=== PATIENT | male | born 1990 | race Caucasian/White ===

== ENCOUNTER 2022-03-14 08:57 | Emergency (ER) | payer BC ==
[2022-03-14 09:18] VITALS: BP 155/65; PULSE 76; RESP 18; TEMP 98.1
--- NOTE | 2022-03-14 09:56 | XR ---
EXAMINATION TYPE: XR ankle complete LT DATE OF EXAM: 03/14/2022 COMPARISON: NONE INDICATION: Pain/injury TECHNIQUE: 3 views of the left ankle FINDINGS: No definite acute fracture line identified. Preserved ankle mortise with a smooth talar dome. No siza ble ankle joint effusion. Tiny posterior calcaneal enthesophyte at the insertion of Achilles tendon. IMPRESSION: No definite acute fracture or dislocation identified.
[2022-03-14] MEDS ORDERED: IBUPROFEN 800 MG TAB PO STA (11:27)
--- NOTE | 2022-03-14 11:31 | ED ---
Lower Extremity Injury HPI - General Chief Complaint: Extremity Injury, Lower Stated Complaint: ankle injury Time Seen by Provider: 03/14/22 11:20 Source: patient, RN notes reviewed, old records reviewed Mode of arrival: wheelchair Limitations: no limitations - History of Present Illness Initial Comments: Well-appearing 32-year-old male presents to the emergency room with complaints of left ankle pain and swelling. Patient states that he rolled his ankle last night stepping off the curb. He was able to ambulate at the time but this morning awoke with increased pain and swelling. He states it feels "fuzzy" and at the time of injury he felt a tearing sensation. He has been taking Motrin and using ice with no relief. MD Complaint: ankle injury, foot injury (left) -: days(s) (1) Type of Injury: other (rolled) Place: street/outdoors Severity scale (1-10): 8 Associated Symptoms: other ("tearing") Treatments Prior to Arrival: cold therapy, NSAIDS - Related Data Previous Rx's Medication Instructions Recorded Ibuprofen [Motrin] 800 mg PO Q6HR #30 tab 03/14/22 Allergies Allergy/AdvReac Type Severity Reaction Status Date / Time No Known Allergies Allergy Verified 03/14/22 09:18 Review of Systems ROS Statement: Those systems with pertinent positive or pertinent negative responses have been documented in the HPI. ROS Other: All systems not noted in ROS Statement are negative. Past Medical History History of Any Multi-Drug Resistant Organisms: None Reported Additional Past Surgical History / Comment(s): vasectomy Past Psychological History: No Psychological Hx Reported Smoking Status: Vaper Past Alcohol Use History: Occasional Past Drug Use History: None Reported General Exam Limitations: no limitations General appearance: alert, in no apparent distress Head exam: Present: atraumatic Respiratory exam: Absent: respiratory distress, accessory muscle use Cardiovascular Exam: Present: regular rate Left Ankle exam: Present: tenderness, swelling. Absent: deformity Foot/Toe exam: Present: tenderness, swelling. Absent: deformity, crepitus, dislocation, calcaneal tenderness, tenderness at base of 5th metatarsal Neurovascular tendon exam: Present: no vascular compromise. Absent: abnormal cap refill, extremity cold to touch, pallor, foot drop Neurological exam: Present: alert, oriented X3 Psychiatric exam: Present: normal affect, normal mood Skin exam: Present: warm, dry, normal color. Absent: cyanosis, diaphoretic, petechiae, pallor Course Vital Signs 03/14/22 09:13 Temperature 98.1 F Pulse Rate 76 Respiratory 18 Rate Blood Pressure 155/65 Medical Decision Making - Medical Decision Making Patient rolled his left ankle last night stepping off curb. He was able to ambulate at the time, presents with increased swelling today. X-ray of the foot and ankle show no evidence of fracture. Foot is warm and pedal pulse is present. Achilles tendon is intact. Patient states that the pain is worse with ambulation and therefore he was given Motrin, ankle stirrup splint and crutches. He was directed to follow-up with his PCP and/or orthopedics withing the next week. Rest, ice and elevate at home. Return to the emergency room with any new or concerning symptoms including increased pain, numbness or pallor. Patient is agreeable to this plan of care. Case discussed with Dr. Mccarthy. Disposition Clinical Impression: Ankle sprain Disposition: HOME SELF-CARE Condition: Good Instructions (If sedation given, give patient instructions): Ankle Sprain (ED) Additional Instructions: Wear splint and use crutches, follow-up with primary care doctor or orthopedics this week. Rest, ice and elevate to decrease swelling. Take Motrin as needed for pain. Return to the emergency room with any increased pain swelling or numbness. Prescriptions: Ibuprofen [Motrin] 800 mg PO Q6HR #30 tab Is patient prescribed a controlled substance at d/c from ED?: No Referrals: None,Stated [Primary Care Provider] - 1-2 days Joni Bass DO [Doctor of Osteopathic Medicine] - 1-2 days Time of Disposition: 12:13
--- NOTE | 2022-03-14 11:54 | XR ---
EXAMINATION TYPE: XR foot complete LT DATE OF EXAM: 03/14/2022 CLINICAL HISTORY: pain TECHNIQUE: Frontal, lateral and oblique images of the left foot are obtained. COMPARISON: None. FINDINGS: There is no acute fracture/dislocation evident. The joint spaces appear within normal broussard its. The overlying soft tissue appears unremarkable. IMPRESSION: There is no acute fracture or dislocation. ICD 10 NO FRACTURE, INITIAL EVALUATION
== END 2022-03-14 12:38 | disposition home or self-care (01) ==
LOC: EC 08:57
DX: S93.402A Sprain of unspecified ligament of left ankle, initial encounter (principal); F17.290 Nicotine dependence, other tobacco product, uncomplicated; X50.9XXA Other and unspecified overexertion or strenuous movements or postures, initial encounter; Y92.410 Unspecified street and highway as the place of occurrence of the external cause
CPT/HCPCS: 73610; 73630; 99283; 29515; L4350